=== PATIENT | male | born 1995 | race Caucasian/White ===

== ENCOUNTER 2017-05-08 13:47 | Outpatient (CLI) | payer BC ==
--- NOTE | 2017-05-08 15:37 | XRAY Report ---
TWO-VIEW CHEST: 05/08/2017 CLINICAL INDICATION: Irregular heartbeat. FINDINGS: Frontal and lateral views of the chest demonstrate a normal cardiac silhouette. The lungs are clear. No effusion or pneumothorax is present. IMPRESSION: NORMAL CHEST. JOB #: [id number] EXT JOB #:[id number]
== END 2017-05-08 13:48 | disposition home or self-care (01) ==
LOC: DI 13:47
PROVIDERS: ATTEND Pediatrics
DX: I49.9 Cardiac arrhythmia, unspecified (principal)
CPT/HCPCS: 71020; 93005; 93041